=== PATIENT | female | born 1950 | race Two or more races ===

== ENCOUNTER → 2017-06-02 | Outpatient (CLI) | payer MEDICARE, OTHER ==
[~2017-06-02] MED LIST: CLON.5 PO; FISHCAP4 PO; FURO1TAB62 PO; LOSA50TA2 PO; MACR100C2 PO; MIRT30TA PO; PAXI30TA7 PO
[2017-06-02 16:05] LABS: HEMATOCRIT 38.3 % (35.0-46.0); MEAN CELL VOLUME 90.8 FL (80.0-100.0); MEAN CORPUSCULAR HGB CONC 33.1 % (32.0-36.0); PLATELET COUNT 243 TH/MM3 (150-450); RED BLOOD COUNT 4.22 MIL/MM3 (4.00-5.30); REVIEW FLAG FINAL; WHITE BLOOD COUNT 5.1 TH/MM3 (4.0-11.0)
[2017-06-02 16:36] LABS: ANION GAP 6 MEQ/L (5-15); AST (GOT) 15 U/L (15-37); BICARBONATE 27.6 MEQ/L (21.0-32.0); BLOOD UREA NITROGEN 11 MG/DL (7-18); CHLORIDE 107 MEQ/L (98-107); GLOMERULAR FILTRATION RATE 74 ML/MIN (>89); GLUCOSE,FASTING 89 MG/DL (74-99); POTASSIUM 3.8 MEQ/L (3.5-5.1); SODIUM (NA) 141 MEQ/L (136-145)
[2017-06-02 16:47] LABS: ALKALINE PHOSPHATASE 113 U/L (45-117); ALT (GPT) 18 U/L (10-53); TOTAL BILIRUBIN ADULT 0.4 MG/DL (0.2-1.0)
== END ==
LOC: CLAB 15:45
PROVIDERS: ATTEND Family Medicine
DX: E66.9 Obesity, unspecified (principal); R53.83 Other fatigue
CPT/HCPCS: 36415; 80053; 84443; 85027; G0463; 99203